=== PATIENT | male | born 1945 | race Caucasian/White ===

== ENCOUNTER 2019-05-18 09:00 | Inpatient (IN) | payer MEDICARE ==
[2019-05-17 11:02] LABS: HEMOGLOBIN 14.3 g/dL (13.5-17.5); MCH 34.1 pg (26.0-34.0); MCHC 35.8 g/dL (31.0-37.0); MCV 95.5 fL (80.0-100.0); MEAN PLATELET VOLUME 8.6 fL (7.4-10.4); RBC 4.19 10x6/uL (4.20-6.10); RDW 12.4 % (11.5-14.5); WBC 6.4 10x3/uL (4.8-10.8)
[2019-05-17 11:07] LABS: CALC OSMOLALITY 266 mosm/kg (275-300); CALCIUM 9.7 mg/dL (8.5-10.1); CARBON DIOXIDE 30.5 mmol/L (21.0-32.0); CHLORIDE - SERUM 94 mmol/L (98-107); CREATININE - SERUM 0.9 mg/dL (0.6-1.3); GLUCOSE 108 mg/dL (74-106); POTASSIUM - SERUM 3.8 mmol/L (3.5-5.1); SODIUM 133 mmol/L (136-145); UREA NITROGEN 12 mg/dL (7-18); eGFR NON AFRICAN AMERICAN 88 mL/min (90-120)
[~2019-05-18] VITALS: Ht 175.3 cm; Wt 79.8 kg
[~2019-05-18 09:00] MED LIST: ASPIRIN EC81 M1 PO; BEET ROOT PO; FERROUS SULFAT325 MG PO; GARLIC PO; GINKGO BILOBA120 MG PO; HYDROCHLOROTH12.5 M1 PO; LISINOPRIL20 MG PO; MOBIC7.5 MG PO; OMEGA-3100 MG PO; OS-CAL500 MG PO; OSTEO BI-FLEX1 EAC1 PO; PEPCID AC20 MG PO; POTASSIUM99 M1 PO; VITAMIN B COMPLEX PO; VITAMIN C500 M1 PO; VITAMIN E100 UNIT PO; XANAX0.5 MG PO; ZOCOR80 MG PO; ZOLOFT50 MG PO; ZYRTEC10 MG PO
[2019-05-18 09:48] VITALS: BP 120/83; Ht 175.3 cm; Wt 79.8 kg
--- NOTE | 2019-05-18 14:44 | NUR ---
PLASMA BLADE SET TO 6/8 BOVIE PAD RIGHT THIGH [id number] EXP 12/25/20
[2019-05-18 16:36] VITALS: BP 113/63
--- NOTE | 2019-05-18 16:45 | NUR ---
RECEIVED PT FROM REC[facility]ERY. PT ALERT AND ORIENTED. NO C/O PAIN. NO S/S OF ACUTE DISTRESS NOTED. IV TO RIGHT HAND, SITE PATENT WITHOUT REDNESS OR SWELLING. LEFT SHOULDER ROTATOR CUFF SURGERY, DRESSING TO SHOULDER C/D/I. HEMAVAC TO LEFT SHOULDER. PT DENIES ANY NEEDS AT THIS TIME. CALL LIGHT IN REACH. WILL CONTINUE TO MONITOR.
--- NOTE | 2019-05-18 18:36 | NUR ---
ALERT AND ORIENTED, RESTING IN BED. NO C/O PAIN. NO S/S OF ACUTE DISTRESS NOTED. CALL LIGHT IN REACH. PT DENIES ANY NEEDS. WILL CONTINUE TO MONITOR.
[2019-05-18 22:12] VITALS: BP 116/65
[2019-05-19 01:00] VITALS: BP 130/81
--- NOTE | 2019-05-19 03:48 | NUR ---
I have reviewed this patient and I concur with the Shift Assessment completed by the Licensed Practical Nurse today this shift.
[2019-05-19 06:27] LABS: BASOPHILS 0.1 % (0-2); EOSINOPHILS 0 % (0-7); HEMATOCRIT 33.2 % (42.0-54.0); IMMATURE GRANULOCYTES 0.2 % (0-5); LYMPHOCYTES 10.7 % (15-50); MCH 33.1 pg (26.0-34.0); MCHC 34.3 g/dL (31.0-37.0); MCV 96.5 fL (80.0-100.0); MEAN PLATELET VOLUME 9.4 fL (7.4-10.4); MONOCYTES 6.9 % (2-11); NEUTROPHILS 82.1 % (40-80); PLATELET COUNT 249 10x3/uL (130-400); RBC 3.44 10x6/uL (4.20-6.10); RDW 12.8 % (11.5-14.5)
[2019-05-19 06:35] VITALS: BP 127/73
[2019-05-19 06:45] LABS: CALC OSMOLALITY 272 mosm/kg (275-300); CALCIUM 8.2 mg/dL (8.5-10.1); CARBON DIOXIDE 28.6 mmol/L (21.0-32.0); CHLORIDE - SERUM 100 mmol/L (98-107); CREATININE - SERUM 0.8 mg/dL (0.6-1.3); GLUCOSE 128 mg/dL (74-106); POTASSIUM - SERUM 3.7 mmol/L (3.5-5.1); SODIUM 136 mmol/L (136-145); UREA NITROGEN 11 mg/dL (7-18); eGFR NON AFRICAN AMERICAN > 90 mL/min (90-120)
[2019-05-19 06:55] LABS: HEMOGLOBIN 11.4 g/dL (13.5-17.5); WBC 9.3 10x3/uL (4.8-10.8)
--- NOTE | 2019-05-19 07:12 | OP ---
PATIENT NAME: HELEN CROFT MEDICAL RECORD: [id number] :[birth year] LOCATION:[id number] ADMISSION DATE:05/18/19 SURGEON: VARSHA DAVE DO DATE OF OPERATION: 05/18/2019 PROCEDURE PERFORMED: Left reverse total shoulder arthroplasty. PREOPERATIVE DIAGNOSIS: Left shoulder rotator cuff arthropathy. POSTOPERATIVE DIAGNOSIS: Left shoulder rotator cuff arthropathy. INDICATIONS: Mr. Croft is a 73-year-old male who had an MRI which showed a 17-mm retraction of the rotator cuff tendon and some arthritis as well as a high riding humeral head. He was initially scheduled for rotator cuff repair, but after reviewing his images and calling and discussing with him, I thought a reverse would be better on him. He was okay with that and with the risks of infection, bleeding, fracture, damage to nerves and vessels, need for further surgery, loss of use of that arm. He signed the consent. SURGEON: Varsha Dave DO DESCRIPTION OF PROCEDURE: The patient was taken to the operative suite after receiving block by anesthesia in the preoperative area. The left upper extremity was prepped and draped after being put in the beachchair position. He was sedated and intubated and then given 900 mg of clindamycin. Left shoulder was then prepped and draped. Time-out was performed and everyone was in correct side, site, patient, and procedure. Incision was begun over the deltopec interval with a #10 blade scalpel. Careful dissection was made down to the deltopec interval. The adhesions were then removed off the deltoid with a Alvarez and a retractor was placed over the deltoid. The cephalic vein was taken laterally. The clavipectoral fascia was then incised and the biceps tendon was tagged. The proximal centimeter of the pec tendon was then removed off the humerus and the biceps tendon was tagged to it. Biceps tendon was then removed and the subscapularis tendon was removed. The humeral head was then exposed and a guide was placed down the canal. Humeral head was then cut and then the glenoid was exposed and cleaned. Labrum was removed off of it. There was some odd looking, I presume, cartilage. It was green in color. I removed that off the humeral and the joint itself and it was taken to the lab. The centering pin was then used in the glenoid and the reamer was used as well as the drill. A 6.5-mm screw was used of 40 mm long and a 25 baseplate. Two peripheral screws were then put in, superior-posterior and anterior-inferior screws, with good locking bite. Glenosphere was then put on and lateralized and then the humerus was exposed. The broaching began and went to a 4. We trialed this, and with a 6 poly, it fit very well. This was then removed and the actual implant was put in after irrigation. This was then reduced and it fit very well with good tension on the conjoined tendon as well as the deltoid fibers. Thorough irrigation was done and a drain was placed. The site was covered with Surgicel powder and vancomycin and tobramycin powder. The interval was loosely closed with #0 Vicryl using simple interrupted stitches. The skin was closed with 2-0 Vicryl in inverted interrupted and 4-0 Monocryl ran on the skin. A Prineo glue was placed on the skin. The drain was then secured with 2 Tegaderms. Telfa and Tegaderm were placed over the incision. He was awakened and taken to recovery in stable condition. Blood loss was approximately 200 mL. He was given a gram of TXA prior to starting. OPERATIVE REPORT [id number] HELEN CROFT BLOOD LOSS: 200 mL. COMPLICATIONS: None. TRANSINT:[id number] Voice Confirmation ID: [id number] DOCUMENT ID: [id number] VARSHA DAVE DO at 0712 CC: [id number] DICTATION DATE: 05/18/19 161 DIRECTOR GROUP SALES: 05/18/191948 ADM IN [facility] [address] [place] [address]
--- NOTE | 2019-05-19 07:46 | NUR ---
PT IS RESTING IN BED WITH EYES OPEN. LEFT ARM IS IN SLING. HEMOVAC DRAIN IN COMPRESSED. BRUISING NOTED TO LEFT ARM. PT REPORTS SLIGHT PAIN WILL ADDRESS. SEE EMAR. DRESSING TO LEFT SHOULDER IS C/D/I. RESPIRATIONS ARE EVEN AND UNLABORED. PT IS AAO X 4. PT REPORTS FEELING TO LEFT UPPER EXTREMITY. PT DENIES PRESENCE OF N/V. PT DENIES FURTHER NEEDS. BED IS IN THE LOWEST POSITION. CALL LIGHT AND BEDSIDE TABLE ARE WITHIN REACH. SIDE RAILS X 2. WILL CONT TO MONITOR.
[2019-05-19 07:58] VITALS: BP 136/79
[2019-05-19 09:11] VITALS: BP 149/79
[2019-05-19 12:25] VITALS: BP 113/63
--- NOTE | 2019-05-19 12:42 | MORECARE ---
CASE MANAGEMENT DISCHARGE SUMMARY PATIENT: HELEN CROFT UNIT: [id number] ADM DATE: 05/18/19 AGE: 73 : [birth year] SEX: M ROOM/BED: D.2228 AUTHOR: KWAME,DOC PHYSICIAN: REFERRING PHYSICIAN: VARSHA DAVE DO DATE OF SERVICE: 05/19/19 Discharge Plan Patient Name: HELEN CROFT Facility: [facility]:[place] : 1945 Planned Disposition: Home Anticipated Discharge Date: 05/19/19 Discharge Date: Expected LOS: 1 Initial Reviewer: [email or web address] Initial Review Date: 05/19/2019 Generated: 05/19/19 1:42 pm DCP- Discharge Planning Updated by [email or web address]: Rosi Dinh on 05/19/19 11:[address] Patient Name: HELEN CROFT Admission Status: Elective Accout number: [id number] Admission Date: 05-18-2019 : 1945 Admission Diagnosis: Attending: VARSHA DAVE Current LOS: 1 Anticipated DC Date: 05-19-2019 Planned Disposition: Home Primary Insurance: [employer] CHOICE PPO MCR [employer]VANT Discharge Planning Comments: CM met with patient to complete initial dc planning assessment. CM educated patient on the CM role and verbal consent given by patient to complete assessment. Patient lives at home with his . At discharge patient plans to return and feels this is a safe discharge. CM discussed availability of home health, rehab services, and medical equipment. Patient denied known discharge needs at this time. CM will continue to follow and will assist as needed with dc plans/needs. Sulfuric Acid Plant Supervisor: Rosi Dinh DCPIA - Discharge Planning Initial Assessment Updated by [email or web address]: Rosi Dinh on 05/19/19 12:29 pm * Is the patient Alert and Oriented? Yes * How many steps to enter\exit or inside your home? 5/0 * PCP Dr. Puri * Preadmission Environment Home with Family * ADLs Independent * Equipment Other * Other Equipment Sling * List name and contact numbers for known caregivers / representatives who currently or will assist patient after discharge: Liliam Croft - spouse - [phone] * Verbal permission to speak to the caregivers and representatives has been obtained from the patient. Yes * Community resources currently utilized None * Additional services required to return to the preadmission environment? No * Can the patient safely return to the preadmission environment? Yes * Has this patient been hospitalized within the prior 30 days at any hospital? No Patient Name: HELEN CROFT Page [id number] at 1242 All edits/amendments must be made on the electronic document DICTATION DATE: 05/19/191241 CORPORATE VP ADVERTISING & ONLINE: JULIANNE 05/19/19 1242 RPT#: [id number] DC DATE: STATUS: ADM IN [facility] [address] [place] [address] END OF REPORT
[2019-05-19] MEDS ORDERED: OXYCODONE HCL5 M1 PO (12:44)
--- NOTE | 2019-05-19 14:43 | NUR ---
ALL DISCHARGE INSTRUCTIONS COVERED. PT AND PT FAMILY DENY FURTHER QUESTIONS/CONCERNS AT THIS TIME. RIGHT HAND PIV REMOVED WITH CATHETER TIP INTACT. DRESSING APPLIED. ALL DISCHARGE PAPERS SIGNED.
--- NOTE | 2019-05-19 14:47 | NUR ---
PT TRANSPORTED FROM ROOM VIA WHEELCHAIR BY HOSPITAL VOLUNTEER STAFF. PT WITH BELONGINGS. PT AND PT FAMILY DENY FURTHER NEEDS/CONCERNS.
--- NOTE | 2019-05-25 06:49 | MORECARE ---
CASE MANAGEMENT DISCHARGE SUMMARY PATIENT: HELEN CROFT UNIT: [id number] ADM DATE: 05/18/19 AGE: 73 : 47 SEX: M ROOM/BED: D.2228 AUTHOR: KWAME,DOC PHYSICIAN: REFERRING PHYSICIAN: VARSHA DAVE DO DATE OF SERVICE: 05/25/19 Discharge Plan Patient Name: HELEN CROFT Facility: [facility]:[place] : 1945 Planned Disposition: Home Anticipated Discharge Date: 05/19/19 Discharge Date: 05/19/2019 Expected LOS: 1 Initial Reviewer: [email or web address] Initial Review Date: 05/19/2019 Generated: 05/25/19 7:49 am DCP- Discharge Planning Updated by [email or web address]: Rosi Dinh on 05/19/19 11:[address] Patient Name: HELEN CROFT Admission Status: Elective Accout number: [id number] Admission Date: 05-18-2019 : 1945 Admission Diagnosis: Attending: VARSHA DAVE Current LOS: 1 Anticipated DC Date: 05-19-2019 Planned Disposition: Home Primary Insurance: [employer] CHOICE PPO MCR ADVANT Discharge Planning Comments: CM met with patient to complete initial dc planning assessment. CM educated patient on the CM role and verbal consent given by patient to complete assessment. Patient lives at home with his . At discharge patient plans to return and feels this is a safe discharge. CM discussed availability of home health, rehab services, and medical equipment. Patient denied known discharge needs at this time. CM will continue to follow and will assist as needed with dc plans/needs. Safety Investigator/Cause Analyst: Rosi Dinh DCPIA - Discharge Planning Initial Assessment Updated by [email or web address]: Rosi Dinh on 05/19/19 12:29 pm * Is the patient Alert and Oriented? Yes * How many steps to enter\exit or inside your home? 5/0 * PCP Dr. Puri * Preadmission Environment Home with Family * ADLs Independent * Equipment Other * Other Equipment Sling * List name and contact numbers for known caregivers / representatives who currently or will assist patient after discharge: Liliam Croft - spouse - [phone] * Verbal permission to speak to the caregivers and representatives has been obtained from the patient. Yes * Community resources currently utilized None * Additional services required to return to the preadmission environment? No * Can the patient safely return to the preadmission environment? Yes * Has this patient been hospitalized within the prior 30 days at any hospital? No Last DP export: 05/19/19 11:42 a Patient Name: HELEN CROFT Page [id number] at 0649 All edits/amendments must be made on the electronic document DICTATION DATE: 05/25/19647 DIRECTOR OF TRAINING: JULIANNE 05/25/19647 RPT#: [id number] DC DATE:05/19/19 STATUS: DIS IN [facility] [id number] [place] [address] END OF REPORT
== END 2019-05-19 15:52 | disposition home or self-care (01) | DRG 483 ==
LOC: D.OPS 09:00 → D.PAN 11:15 → D.OPS 11:15 → D.PAN 11:55 → D.OPS 11:55 → D.PAN 14:00 → D.MS 16:11 → D.OPS 16:34 → D.MS 16:34
PROVIDERS: Anesthesiology; Internal Medicine Nephrology; ADMIT Orthopaedic Surgery; ATTEND Orthopaedic Surgery
PROC: 0RRK00Z Replacement of Left Shoulder Joint with Reverse Ball and Socket Synthetic Substitute, Open Approach (ICD-10-PCS; principal; 2019-05-18 12:00)
DX: M12.812 Other specific arthropathies, not elsewhere classified, left shoulder (principal); D62 Acute posthemorrhagic anemia; I10 Essential (primary) hypertension; E78.5 Hyperlipidemia, unspecified; K21.9 Gastro-esophageal reflux disease without esophagitis; F32.9 Major depressive disorder, single episode, unspecified; G47.00 Insomnia, unspecified; Z87.891 Personal history of nicotine dependence; K44.9 Diaphragmatic hernia without obstruction or gangrene